=== PATIENT | male | born 1950 | race Caucasian/White ===

== ENCOUNTER → 2018-05-30 | Outpatient (CLI) | payer MEDICARE ==
[~2018-05-30] MED LIST: AMBIEN10 MG PO; HYDROCODON-ACE1 EA12 PO; TAMSULOSIN HCL0.4 MG PO; VICODIN
--- NOTE | 2018-06-03 10:40 | Diagnostic Imaging Report ---
PROCEDURE:CT CHEST WITHOUT CONTRAST COMPARISON:[facility], CT, CT CHEST WO, 05/03/2015, 13:18. INDICATIONS:EX SMOKER, NICOTINE DEPENDENCE TECHNIQUE: Axial CT images of the chest were obtained without IV contrast. Coronal and sagittal reformations were made available for review. Low-dose technique was utilized. RADIATION DOSE: Total DLP: 624.26 mGy*cm Estimated effective dose: (DLP x 0.014 x size factor) mSv FINDINGS: Lungs: No consolidations or edema. Minimal right middle lobe scarring. Pleural-parenchymal scarring also present involving the medial left upper lobe (axial series 3, image [id number]) where there was a similar finding but not quite as pronounced. No pulmonary masses or discrete pulmonary nodules. Pleura:No pleural effusion or pneumothorax. Heart & Mediastinum:Not enlarged. No mediastinal adenopathy. Vessels:Minimal thoracic aortic calcification. Upper abdomen:Incompletely visualized hypodensity in the upper pole of the left kidney likely represents a cyst. Small splenule anterior to the spleen. Musculoskeletal:Mild degenerative changes of the spine. CONCLUSION: 1. Areas of scarring involving the right middle lobe and left upper lobe. 2. The left upper lobe medial scarring appears nodular but true pulmonary nodule not substantiated. 3. Left upper lobe finding requires followup in 6 months. Shiraz Fernández D.O. Dictated by: Shiraz Fernández D.O. on 06/03/2018 at 9:25 Electronically approved by: Shiraz Fernández D.O. on 06/03/2018 at 10:48
--- NOTE | 2018-06-20 12:52 | Pulmonary Function Test ---
DATE OF STUDY: Spirometry: Pre-bronchodilator values: FEV1 1.6 liters (47%). FVC 2.25 liters (49%). Post-bronchodilator values: FEV1 1.69 liters (49%). FVC 2.4 liters (52%). FEV1:FVC ratio 71. Diffusion capacity: DLCO 42, DLCO/VA 89. Lung volumes: Total lung capacity 78%. CONCLUSION: Restrictive pattern with reduced diffusion capacity. Findings can be due to interstitial lung disease. Clinical correlation is recommended. Job#: [id number] EV
== END ==
LOC: RESP 09:41
PROVIDERS: ATTEND Internal Medicine
DX: Z87.891 Personal history of nicotine dependence (principal)
CPT/HCPCS: 71250; 94060; 94727; 94729

== ENCOUNTER → 2018-07-12 | Outpatient (CLI) | payer MEDICARE ==
--- NOTE | 2018-07-29 16:24 | Polysomnography ---
DATE OF STUDY: The patient came for a home sleep study. It was monitored with a chin EMG, an EKG, a central and occipital EEG, a right and left EOG, and a nasal pressure monitor coupled with a thermistor. Patient also had arterial oxygen saturation monitored. The patient slept for 398.5 minutes out of 434 minutes. The sleep efficiency was 90.9%. Sleep onset latency was 4 minutes. The patient had 171 apneic and hypopneic events. The apnea/hypopnea index was 45.3 events per hour. INTERPRETATION: Significant obstructive sleep apnea. RECOMMENDATIONS 1. Second night sleep study with CPAP titration. 2. An alternative would be autotitrating CPAP ranging from 4 to 20 cm of water pressure with a heated humidifier. 3. Avoid alcohol or sedatives prior to retiring at night. 4. Achieve and maintain an ideal body weight. Job#: [id number] EV
== END ==
LOC: SLEEP 19:20
PROVIDERS: ATTEND Internal Medicine
DX: R06.83 Snoring (principal)
CPT/HCPCS: 95806

== ENCOUNTER → 2018-09-09 | Outpatient (CLI) | payer MEDICARE | LOC: SLEEP 20:37 | PROVIDERS: ATTEND Internal Medicine | DX: G47.33 Obstructive sleep apnea (adult) (pediatric) (principal) | CPT/HCPCS: 95811 ==

== ENCOUNTER → 2019-09-29 | Outpatient (CLI) | payer MEDICARE ==
--- NOTE | 2019-09-29 14:07 | Diagnostic Imaging Report ---
EXAM: CT Chest WITHOUT intravenous contrast 09/29/2019 11:42 AM INDICATION: Pulmonary nodule COMPARISON: Chest CT of 05/03/2015 TECHNIQUE: Chest was scanned utilizing a multidetector helical scanner from the lung apex through the level of the adrenal glands without administration of IV contrast. Coronal and sagittal reformations were obtained. Low-dose protocol was performed. IV CONTRAST: None RADIATION DOSE: Total DLP: 271.8 mGy*cm. Dose modulation, iterative reconstruction, and/or weight based adjustment of the mA/kV was utilized to reduce the radiation dose to as low as reasonably achievable. COMPLICATIONS: None FINDINGS: LINES/ TUBES: None. LUNGS AND AIRWAYS: The central airways are patent. No focal consolidation or pulmonary edema. The lungs are hyperinflated. Moderate to severe bilateral upper lobe predominant centrilobular emphysema. 5 mm right apical pulmonary nodule (series 3 image 31). PLEURA: The pleural spaces are clear. HEART AND MEDIASTINUM: The thyroid gland is normal. No mediastinal, hilar or axillary lymphadenopathy. The heart is normal in size.. There is no pericardial effusion. Mild scattered atherosclerotic arterial calcifications. UPPER ABDOMEN: No acute findings. BONES: The visualized bony thorax is within normal limits. SOFT TISSUES: Unremarkable. IMPRESSION: New 5 mm right apical pulmonary nodule. In this high risk patient, follow-up chest CT is optional at 12 months. Moderate to severe upper lobe predominant centrilobular emphysema. Signed by: Nakul Dave MD on 09/29/2019 2:05 PM
== END ==
LOC: CT 11:32
PROVIDERS: ATTEND Internal Medicine
DX: R91.1 Solitary pulmonary nodule (principal)
CPT/HCPCS: 71250

== ENCOUNTER → 2020-04-21 | Outpatient (CLI) | payer MEDICARE ==
--- NOTE | 2020-04-21 15:21 | Diagnostic Imaging Report ---
CT of the chest, without contrast. History: Pulmonary nodule. Comparison: CT chest without contrast from 09/29/2019. Technique: Multidetector CT scanning of the chest was performed from the level of the apices to the upper abdomen without contrast. Coronal and sagittal multiplanar reformations were obtained. RADIATION DOSE: Total DLP: 548.41 mGy*cm Dose modulation, iterative reconstruction, and/or weight based adjustment of the mA/kV was utilized to reduce the radiation dose to as low as reasonably achievable. FINDINGS: The thyroid and remaining visualized structures within the base of the neck demonstrate no significant abnormalities. The thoracic aorta is normal course and caliber. The heart is not enlarged. No abnormal pericardial fluid is present. There is no abnormal axillary, mediastinal, or hilar lymph node enlargement. The trachea and proximal airways are patent. Again identified is moderate to severe centrilobular emphysematous changes, more prominent within the upper lobes. The previously identified right apical pulmonary nodule appears less conspicuous on today's examination and now measures 3 mm (axial image 27), previously 5 mm. There is no evidence for consolidation, pneumothorax, mass, new/suspicious nodule, or pleural effusion. Limited views of the upper abdomen demonstrate no significant abnormalities. The osseous structures demonstrate no evidence for acute fracture or destructive process. The extrathoracic soft tissues are unremarkable. IMPRESSION: Previously identified right apical pulmonary nodule appears less conspicuous on today's examination now measuring 3 mm, previously 5 mm. No new/suspicious pulmonary nodule identified. Stable moderate to severe centrilobular emphysematous changes. Signed by: Dr. Parminder Nguyễn MD on 04/21/2020 3:18 PM
== END ==
LOC: CT 14:00
PROVIDERS: ATTEND Internal Medicine
DX: R91.1 Solitary pulmonary nodule (principal)
CPT/HCPCS: 71250